=== PATIENT | female | born 1990 | race Caucasian/White ===

== ENCOUNTER 2019-03-05 16:25 | Emergency (ER) | payer OTHER ==
[~2019-03-05] VITALS: Ht 149.9 cm; Wt 52.2 kg
[~2019-03-05 16:25] MED LIST: OSEL75CA PO; TUSSI PRES-B L120 M1 PO
== END 2019-03-05 19:33 | disposition home or self-care (01) ==
LOC: ER 16:25
DX: J01.20 Acute ethmoidal sinusitis, unspecified (principal); R51 Headache